=== PATIENT | male | born 2000 | race Caucasian/White ===

== ENCOUNTER 2024-06-09 17:16 | Emergency (ER) | payer OTHER, SELFPAY ==
[2024-06-09 17:22] VITALS: BP 130/86
[2024-06-09 17:38] LABS: % Basophils 0.8 % (0-2); % Immature Granulocytes 0.3 % (0-0.5); % Lymphocytes 33.8 % (20.5-51.1); % Neutrophils 57.1 % (42.2-75.2); Absolute Basophils 0.1 10^3/uL (0-0.2); Absolute Eosinophils 0.2 10^3/uL (0-0.7); Absolute Lymphocytes 3.6 10^3/uL (1.2-3.4); Absolute Monocytes 0.6 10^3/uL (0.1-0.6); Absolute Neutrophils 6.1 10^3/uL (1.4-6.5); Hematocrit 43.2 % (39.0-52.0); Hemoglobin 15.4 g/dL (13.0-18.0); Mean Corp Hgb Conc. 35.6 g/dL (33.0-37.0); Mean Corpuscular Hgb 30.4 pg (27.0-31.0); Mean Corpuscular Volume 85.2 fL (80.0-94.0); Mean Platelet Volume 9.4 fL (7.4-10.4); Nucleated Red Blood Cells % 0 % (-); Platelet Count 411 10^3/uL (130-400); Red Blood Cell Count 5.07 10^6/uL (4.70-6.10); Red Cell Dist. Width 11.8 % (11.5-14.5); White Blood Cell Count 10.6 10^3/uL (4.8-10.8)
[2024-06-09 17:51] LABS: ALT (SGPT) 38 U/L (0-50); AST (SGOT) 25 U/L (17-59); Albumin 4.8 g/dl (3.5-5.0); Alkaline Phosphatase 87 U/L (38-126); Blood Urea Nitrogen 19 mg/dl (9-20); Calcium 9.7 mg/dl (8.4-10.2); Carbon Dioxide 27 mmol/L (22-30); Chloride 100 mmol/L (98-107); Glucose 121 mg/dl (70-99); Sodium 141 mmol/L (135-145); Total Bilirubin 0.2 mg/dl (0.2-1.3); Total Protein 7.1 g/dl (6.3-8.2); eGFR > 60.00
[2024-06-09 18:21] LABS: TSH 0.89 uIU/ml (0.47-4.68)
[2024-06-09 18:27] VITALS: BP 136/27
--- NOTE | 2024-06-09 19:14 | ED.GENMED ---
History of Present Illness
General
Chief Complaint: Heart Rate Problem
Time Seen by Provider: 06/09/24 19:14
History of Present Illness
History of Present Illness:
TIME OF INITIAL ENCOUNTER: 7:30 PM
HPI: The patient was sitting on the edge of his bed watching something when he had abrupt onset palpitations. This was associated with dizziness/near syncope. He could sense his heart rate worsen. He noted his heart rate was around 108 'and
climbing'. He never had any chest pain or shortness of breath. He has no other symptoms. He states around the pandemic, he had some thyroid issues but was never placed on any medication.
EXAM:
GENERAL: Well appearing in no distress
HEENT: Moist oral mucosa, TMs are clear, there is some very minimal erythema noted to the superior aspect of the right canal
CARDIOVASCULAR: No murmurs, normal heart rate, regular rhythm, No chest wall tenderness, on my evaluation his heart rate was 68
PULMONARY: No respiratory distress, breath sounds are clear and equal
ABDOMEN: Soft with no peritoneal signs, no tenderness
NEUROLOGIC: Excellent strength all extremities, no coordination deficits
PSYCHIATRIC: Appropriate mental status, normal insight and judgement
EXTREMITIES: Nontender, no edema, moves all extremities equally
SKIN: No rash, no lesions
NUMBER AND COMPLEXITY OF PROBLEMS ADDRESSED AT THE ENCOUNTER
� Chronic conditions affecting care: No significant past medical history
� Acute Exacerbation and/or Progression of Chronic Illness: This is an acute problem
� Differential Diagnosis includes: Anxiety, dehydration unlikely as family states he has been drinking fluids, low suspicion for drug/alcohol use confirmed by family at bedside, thyroid disease, electrolyte abnormality
AMOUNT AND/OR COMPLEXITY OF DATA TO BE REVIEWED AND ANALYZED
� I performed an independent evaluation of and my interpretation is:
EKG: Sinus 109, normal axis, no acute ST abnormality
CT:
X-rays:
Laboratory Studies: CBC, chemistries, TSH unremarkable
Other:
� Review of other/old records: No old records available for review
� Clinical information was obtained by an independent historian:I spoke to the parents at bedside
� Prescriptions/Medications Considered but not given: Considered beta-joel however the patient's heart rate spontaneously came down to 60s during his stay in the emergency department
� Further testing considered but not performed:
RISK OF COMPLICATIONS AND/OR MORBIDITY OR MORTALITY OF PATIENT MANAGEMENT
� Social determinants of health affecting care: Lives at home
� Discussion with other providers:
� Escalation of care including admission/observation vs risk of discharge considered: The patient is well-appearing with an unremarkable ED workup. Since this is his third time he has had a similar episode and at one point he
passed out, I recommend that he follows up with a zoology professor. His mom works here in the [employer] and states she will have him see a zoology professor.
ANY OTHER UPDATES:
Phy Exam
Physical Exam
Physical Exam:
See HPI
Course
Orders/Labs/Results
Orders:
Orders
06/09/24 17:16
Electrocardiogram (*1) Urgent
Reason for Study: Palpitations
EKG- Treatment ONCE
06/09/24 17:32
Complete Blood Count/With Diff Urgent
Comprehensive Metabolic Panel Urgent
TSH Urgent
Abnormal Lab Results
06/09/24
17:32
Plt Count 411 H 10^3/uL
(130-400)
Absolute Lymphs (auto) 3.6 H 10^3/uL
(1.2-3.4)
Glucose 121 H mg/dl
(70-99)
06/09/24 17:32
06/09/24 17:32
Vital Signs
Initial and Last Documented VS:
Initial Vital Signs
Pulse Resp BP Pulse Ox
106 16 130/86 99
06/09/24 17:22 06/09/24 17:22 06/09/24 17:22 06/09/24 17:22
Last Documented Vital Signs
Pulse Resp BP Pulse Ox
106 16 136/27 99
06/09/24 17:22 06/09/24 17:22 06/09/24 18:27 06/09/24 17:22
*Critical Care Note
Total Time (30-74mins, 75-104mins- exclusive of procedures): Not Applicable
ED Attending Note
-
Portions of this chart may have been created with voice recognition software.� Occasional wrong word or��sound alike� substitutions may have occurred due to the inherent limitations of voice recognition software.
Discharge Plan
Departure
Patient Disposition: Home (Routine Discharge)
Date of Disposition: 06/09/24
Time of Disposition: 19:36
Patient with high blood pressure during this ER visit?: Yes
Discharge Problem:
Palpitations
Instructions: Palpitations (DC)
Activity Restrictions/Additional Instructions:
The cause of your symptoms is unclear. White blood cell count is normal, hemoglobin level is normal, chemistry levels are normal however random glucose level was 121. TSH (thyroid testing) is normal. I see no evidence for ear infection or signs
of pneumonia or other infection.
Discharge Date and Time
Print Language: EQUATORIAL GUINEAN
[2024-06-09 19:42] VITALS: BP 142/75
== END 2024-06-09 19:52 | disposition home or self-care (01) ==
LOC: EMR 17:16
PROVIDERS: Student in an Organized Health Care Education/Training Program; EMERGENCY PHYSICIAN Emergency Medicine; FAMILY PHYSICIAN Family Medicine
DX: R00.2 Palpitations (principal); R03.0 Elevated blood-pressure reading, without diagnosis of hypertension
CPT/HCPCS: 99284; 80053; 84443; 85025; 93005